=== PATIENT | female | born 1945 | race Caucasian/White ===

== ENCOUNTER → 2017-08-04 | Outpatient (CLI) | payer MEDICARE ==
[~2017-08-04] MED LIST: BRIM5DRO EACHEYE; CARB15DR94 OP; CHOL20004 PO; CLID1CAP PO; DOXA2TAB2 PO; ESOM40CA PO; FAMO40TA70 PO; GADOBENATE DIMEGLUMINE 529 MG/ML 10ML IV ONE; GUAI120015 PO; LATA2.5D2 EACHEYE; LISI40TA4 PO; NAPR220C15 PO; NIAC1000 PO; NIFE90TA2 PO; OLME1TAB19 PO; OXYC-96 PO; PITA4TAB2 PO; RANI150T43 PO; SIME80TA15 PO; VITA400T9 PO
== END | disposition home or self-care (01) ==
LOC: MAMMO 13:41
PROVIDERS: ATTEND Ophthalmology
DX: Z12.31 Encounter for screening mammogram for malignant neoplasm of breast (principal); D35.2 Benign neoplasm of pituitary gland
CPT/HCPCS: 70553; 77067; A9577

== ENCOUNTER → 2018-08-17 | Outpatient (CLI) | payer MEDICARE ==
[~2018-08-17] MED LIST changes: -GADOBENATE DIMEGLUMINE 529 MG/ML 10ML IV ONE; +RANI-655 PO; -RANI150T43 PO
== END | disposition home or self-care (01) ==
LOC: MRI 14:27
PROVIDERS: ATTEND Ophthalmology
DX: M47.816 Spondylosis without myelopathy or radiculopathy, lumbar region (principal); M48.061 Spinal stenosis, lumbar region without neurogenic claudication; D36.9 Benign neoplasm, unspecified site
CPT/HCPCS: 70551; 72141; 72148